=== PATIENT | male | born 1980 | race Caucasian/White ===

== ENCOUNTER 2021-10-06 17:28 | Emergency (ER) | payer SELFPAY ==
[2021-10-06 17:59] VITALS: BP 140/96; PULSE 88; RESP 20; TEMP 36.3; O2SAT 98
--- NOTE | 2021-10-06 18:04 | ED.DENTAL ---
HPI - Dental/Oral General Chief complaint: Dental/Oral Stated complaint: possible tooth infection Time Seen by Provider: 10/06/21 18:04 Source: patient Mode of arrival: ambulatory Limitations: no limitations History of Present Illness HPI Narrative: this is a 41-year-old male that presents with some pain with no fever chills does have pain that radiates into his right ear with some tender right submandibular gland with no shortness of breath no nausea vomiting does have a history of dental caries and is on a waiting list for seeing a dentist. MD Complaint: tooth pain Teeth map: 1. Right upper molar and premolar tenderness with cavities and surrounding gum inflammation Onset (ago): day(s) Duration: constant Severity: moderate Severity scale (1-10): 6 Relieving factors: NSAIDs Exacerbating factors: nothing Context: history of dental caries Associated symptoms: gum swelling Treatment prior to arrival: oral analgesic Related Data Allergies Allergy/AdvReac Type Severity Reaction Status Date / Time No Known Allergies Allergy Unknown Verified 10/06/21 18:06 Review of Systems Review of Systems: All systems reviewed & are unremarkable except as noted in HPI and below PMFSH Past Medical History Medical History Tooth decay Family History Family History Father Hypertension Family history of alcoholism Mother Hypertension Family history of diabetes mellitus in first degree relative Family history of lymphoma Patient's mother is Social History Social History Smoking status: Former smoker Alcohol intake: never Exam Const: General: healthy appearing, no acute distress and alert Orientation/consciousness: patient oriented x3 HENMT: Head: normal to inspection Other: right upper molar tenderness with tooth decay and surrounding gum inflammation Eyes: Conjunctivae: conjunctivae normal Pupils: Equal, round and reactive pupils present Neck: Neck: normal visual inspection and lymphadenopathy Chest: Chest palpation & inspection: normal inspection of the chest Resp: Effort & Inspection: normal respiratory effort Auscultation: clear to auscultation bilaterally Cardio: Rate: regular rate Rhythm: regular rhythm GI: GI Palp: Yes Soft to palpation Percussion: Yes normal to percussion : Testes: Testes normal Back/Spine/Pelvis: Back: no CVA tenderness Skin: General skin exam: normal color Rashes: no rashes Neuro: General: patient oriented x3, moves all extremities, no meningeal signs and no focal motor deficits Extrem: General: normal to inspection and no pedal edema Psych: Mental Status: mental status grossly normal Affect: normal affect Attitude: cooperative Course Course Emergency Course: advised patient to take Tylenol as needed and ibuprofen about 600mg twice daily along with antibiotics and keep follow-up with his dentist. Critical Care Time Critical Care Time Critical Care Time: No Discharge Plan Discharge Clinical Impression: Dental abscess Patient Disposition: Home, Self-Care Condition: Stable Instructions: Antibiotic Form, Dental Abscess (ED) Additional Instructions: Take medicine as prescribed, can take ibuprofen 600mg twice daily with meals along with antibiotics. Prescriptions: New amoxicillin 500 mg capsule 500 mg PO TID Qty: 30 RF: 0 Follow-up/Referrals: UNKNOWN,DOCTOR [Primary Care Provider] - Stand Alone Forms: Work/School Release IP Time of Disposition: 18:08
== END 2021-10-06 18:15 | disposition home or self-care (01) ==
PROVIDERS: Emergency Provider Emergency Medicine
DX: K04.7 Periapical abscess without sinus (principal)
CPT/HCPCS: 99283